=== PATIENT | male | born 1940 | race African-American/Black ===

== ENCOUNTER 2023-08-24 11:01 | Inpatient (IN) | payer OTHER, SELFPAY ==
[2023-08-24] VITALS (7 sets, daily range): BP systolic 154–172; BP diastolic 80–93; PULSE 96–116; RESP 16–19; TEMP 36.4–39.5; O2SAT 94–97; BMI 30.3
--- NOTE | ~2023-08-24 | CT_ITS ---
EXAMINATION: CT ABDOMEN AND PELVIS WITH CONTRAST CLINICAL INFORMATION: Abdominal pain. Urinary retention COMPARISON: None available. TECHNIQUE: Multidetector volumetric images were obtained from the superior aspect of the liver through the pubic symphysis following administration 85 mL of Omnipaque 350 intravenous contrast. Sagittal and coronal reformatted images were obtained on the technologist's workstation. Oral contrast: No This CT examination was performed using dose optimization techniques as appropriate, variously including the following: *Automated exposure control *Adjustment of mA and/or kV according to patient size (this includes techniques or standardized protocols for targeted exams where dose is matched to indication/reason for exam; i.e. extremities or head) *Use of iterative reconstruction technique DLP: 509 mGy-cm FINDINGS: LUNG BASES: The visualized lung bases are unremarkable. LIVER, GALLBLADDER, AND BILIARY TREE: Mild hepatic steatosis. No focal hepatic mass. No intrahepatic biliary dilatation. Gallbladder not identified and presumably absent. PANCREAS: Unremarkable. SPLEEN: Unremarkable. ADRENAL GLANDS: Unremarkable. KIDNEYS AND URETERS: 2 mm punctate stone mid right kidney nonobstructive. Kidneys otherwise normal. No hydronephrosis or perinephric collection. BLADDER: The bladder is decompressed with a somewhat thick inferior wall secondary to what appears to be an infiltrative process from the prostate. Please see below. GASTROINTESTINAL TRACT: No bowel obstruction. Appendix normal. Moderate sigmoid diverticular disease noted. No diverticulitis. Small hiatal hernia. ABDOMINAL WALL: No significant hernia is appreciated. LYMPH NODES: Normal. VASCULAR: Aorta atherosclerotic but nonaneurysmal. PELVIC VISCERA: Abnormal. The prostate is enlarged, at 73 mm transverse with a prominent left peripheral zone as well as a very prominent central zone protruding up to the base of the bladder and possibly invading the bladder wall. I would recommend correlation with PSA as well as consultation. I do not see any adjacent fluid collections are significant adenopathy however deep in the pelvis. There does appear to be slight nodularity also to the left seminal vesicle. OSSEOUS STRUCTURES: There is degenerative change and spondylitic change throughout the lumbar spine but no destructive lesion. Note is made however of very minor sclerotic foci in the right and left iliac bones. Given the finding seen in the prostate on the CT study, I would recommend a bone scan. CT/CT abdomen pelvis w IV con IMPRESSION: Enlarged abnormal appearing prostate, extending up to the base of the bladder. Further workup advised. Agnesner guidelines were followed.
--- NOTE | ~2023-08-24 | XR_ITS ---
EXAMINATION: XR CHEST CLINICAL INFORMATION: Patient states cough for 2 weeks, unable to sleep last night due to cough COMPARISON: None available. TECHNIQUE: 2 views of the chest were obtained. FINDINGS: Patient is in lordotic position, limiting evaluation. Lung volumes are low. There is no gross pneumothorax. Moderate degenerative changes in the thoracic spine. Asymmetric elevation of the left lung base. Streaky opacities at the left lung base may represent bronchiectasis, atelectasis and/or pneumonia. No pleural effusion. XR/XR chest 2V IMPRESSION: Streaky opacities at the left lung base may represent bronchiectasis, atelectasis and/or pneumonia. No pleural effusion. This study was presented today August 24, 2023 at 1:05 PM for interpretation. Stat results provided at this time as requested by referring provider.
--- NOTE | ~2023-08-24 | XR_ITS ---
EXAMINATION: XR LUMBOSACRAL SPINE WITH OBLIQUES CLINICAL INFORMATION: Back pain COMPARISON: CT abdomen pelvis 4 days ago on 08/24/2023 TECHNIQUE: AP, both oblique, and lateral views of the lumbar spine. Lateral view of the lumbosacral junction. FINDINGS: Some mild spondylitic endplate changes are present. Vertebral body heights and disc spaces are relatively well preserved. No compression fractures or bony destructive lesions. Findings were all seen to better advantage on the 08/24/2023 CT scan. The sclerotic density seen in the iliac bones are better appreciated on the CT scan. XR/XR lumbar spine 4V min IMPRESSION: Mild spondylitic endplate changes. No evidence of an acute injury.
--- NOTE | 2023-08-24 11:33 | ED_ITS ---
HPI - General Adult General Chief complaint: Fever Stated complaint: Cough, headache, insomnia Time Seen by Provider: 08/24/23 11:43 Source: patient Mode of arrival: ambulatory Limitations: no limitations History of Present Illness HPI narrative: Patient is an 83 year old assigned male at with a history of an enlarged prostate presenting to the emergency department today with cough, weakness, and intermittent abdominal pain. Patient states that over the last 2 weeks he has had a cough, weakness, and intermittent abdominal pain. Patient denies any dizziness, lightheadedness, nausea, vomiting, fever, chills, blurry vision, double vision, loss of vision, chest pain, difficulty breathing, shortness of breath, back pain, night sweats, pain with urination, increased urinary frequency, increased urinary urgency, blood in his urine or stool, syncope or a near syncopal episode, recent trauma or falls, bowel incontinence, bladder incontinence, bowel retention, bladder retention, or any other complaints at this time. Onset (ago): week(s) (2) Location: abdomen Severity: mild Severity scale (1-10): 4 Quality: aching Pain Consistency: intermittent Relieving factors: none Exacerbating factors: none Associated symptoms: cough and weakness Treatments prior to arrival: none Related Data Allergies Allergy/AdvReac Type Severity Reaction Status Date / Time No Known Allergies Allergy Verified 08/24/23 11:34 Review of Systems 2 Constitutional: Constitutional: Reports no additional constitutional complaints, Denies chills, Denies fever(s), Denies night sweats and Reports weakness Eyes: Eyes: Reports no additional eye complaints, Denies blurry vision, Denies change in vision, Denies diplopia, Denies eye discharge, Denies loss of vision and Denies eye pain ENT: Denies dizziness Cardiovascular: Cardiovascular: Reports no additional cardiovascular complaints, Denies chest pain, Denies lightheadedness, Denies Loss of Consciousness and Denies dyspnea Respiratory: Respiratory: Reports no additional respiratory complaints, Reports cough and Denies dyspnea Gastrointestinal: Gastrointestinal: Reports no additional gastrointestinal complaints, Reports abdominal pain (intermittent), Denies melena, Denies hematochezia, Denies change in bowel habits and Denies change in stool character Genitourinary: Genitourinary: Reports no additional male genitourinary complaints, Denies hematuria, Denies oliguria, Denies difficulty urinating, Denies dysuria, Denies urinary frequency, Denies urinary hesitancy, Denies urinary incontinence and Denies urinary urgency Musculoskeletal: Musculoskeletal: Reports no additional musculoskeletal complaints, Denies numbness and Denies tingling Neurologic: Denies dizziness, Denies loss of vision, Denies numbness, Denies tingling and Reports weakness Psychiatric: Psychiatric: Reports no additional psychiatric complaints Endocrine: Endocrine: Reports no additional endocrine complaints Hematologic/Lymphatic: Hematologic/Lymphatic: Reports no additional hematologic/lymphatic complaints Allergic/Immunologic: Allergic/Immunologic: Reports no additional allergic/immunologic complaints [facility] Past Medical History Attestation statement: The following information was validated with the patient. Source: old records reviewed and nursing notes reviewed Social History Social History Smoked in Last 30 Days: No Use of substances other than those prescribed or required for medical reasons: No Advance Directives: No Advance Directives Information Provided: Yes Physical Exam ED Vital Signs: Vital Signs - 24 hr 08/24/23 11:35 08/24/23 14:21 Temperature 103.1 F H 99.3 F Pulse Rate 107 H 101 H Respiratory Rate 16 16 Blood Pressure 154/82 H 167/86 H Pulse Oximetry 97 95 Oxygen Delivery Method Room Air Room Air BMI result Body Mass Index 30.3 Const General: cooperative, no acute distress, alert and awake Nutritional Appearance: well nourished Orientation/consciousness: patient oriented x3 Limitations: no limitations HENMT Head: Yes normal to inspection and Yes atraumatic Ears: hearing grossly normal bilaterally and external ears normal General nose exam: Normal external nose present, no nasal discharge noted and no epistaxis Face and sinus: Yes normal facial exam, No abrasion and No laceration Mouth: Normal oral and palatal mucosa present, no drooling and no muffled voice Eyes General: appearance normal, both eyes and all related structures Periorbital: periorbital findings normal Eyelids: Yes eyelids normal Conjunctivae: conjunctivae normal Pupils: Equal, round and reactive pupils present EOM: EOMs intact bilaterally Neck Neck: Yes normal visual inspection, Yes full ROM and Yes no lymphadenopathy Chest Chest palpation & inspection: normal inspection of the chest Resp Effort & Inspection: normal respiratory effort and able to speak in complete sentences Auscultation: clear to auscultation bilaterally Cardio Rate: tachycardic Rhythm: regular rhythm GI Inspection: Yes normal to inspection Neuro General: patient oriented x3 and moves all extremities Cranial nerves: Yes Equal, round and reactive pupils present Cognition (Neuro): normal cognition Motor exam (neuro): 5/5 motor strength present throughout Sensory Exam: Normal double simultaneous stimulation for sensation Coordination: [id number] test normal Extrem General: Yes normal to inspection, Yes full ROM and Yes capillary refill normal Psych Appearance: grossly normal Mental Status: mental status grossly normal Affect: normal affect Attitude: cooperative Thought process: Normal thought process present Thought content: Normal thought content present Insight: Good insight present (Psych) Course Course Course Narrative: RME: 83yo M w/no sig PMHx c/o generalized weakness, subj fever, dry cough, SOB, chest pain w/cough, chills x2 weeks. Also reports urinary frequency & constipation. Denies N/V/D Recently traveled on cruise, visiting area from [place] febrile 103.1, Tachycardic 107 likely from fever. Low suspicion for severe sepsis at this time as likely viral etiology EKG, Labs, UA, CXR, blood cx, lactic, SARS/FLU/RSV, Tylenol ordered Full HPI, ROS and PE to be performed by primary ED provider. Medications Administered Discontinued Medications Generic Name Dose Route Start Last Admin Trade Name Freq PRN Reason Stop Dose Admin Acetaminophen 975 mg 08/24/23 11:39 08/24/23 11:46 Acetaminophen 325 Mg Tablet PO 08/24/23 11:40 975 mg ONCE ONE Administration Ceftriaxone Sodium 2 gm/ 50 mls @ 100 mls/hr 08/24/23 11:43 08/24/23 13:20 Sodium Chloride IV 08/24/23 12:12 Infused ONCE ONE Infusion Sodium Chloride 1,000 mls @ 999 mls/hr 08/24/23 13:00 08/24/23 15:14 Ns IV 08/24/23 14:00 Infused .Q1H1M MANISH Infusion Iohexol 85 ml 08/24/23 12:56 08/24/23 12:57 Iohexol 350 Mg/Ml 100 Ml Infus..Btl IV 08/24/23 12:57 85 ml ONCE ONE Administration Medical Decision Making Medical Decision Making MDM Narrative: Patient is an 83 year old assigned male at with a history of enlarged prostate presenting to the emergency department today with cough, weakness, and intermittent abdominal pain. Patient's physical exam was as noted in the physical exam portion of this note. Patient's blood work was unremarkable. Patient's urine showed an acute infection. Patient's EKG was unremarkable. Patient's chest x-ray showed a possible evolving pneumonia. Patient's CT abdomen showed concerning areas of the pancreas, specifically where it seems to be infiltrating the bladder, recommended a bone scan . Patient's lactic acid was normal at 1.1. Patient was given IV Ceftriaxone. I spoke with the hospitalist team who agreed to admission. I explained my physical exam findings as well as all test results to the patient. I answered all questions asked by the patient. Patient verbalized agreement and understanding with this treatment plan and admission. Differential Diagnosis Differential Diagnoses: The differential diagnosis associated with the presentation includes Pneumonia UTI URI Admission/Observation Consideration of admission/observation: Escalation of care including admission/observation considered Patient admitted. Consult Healthcare Provider Management of the patient was discussed with: Hospitalist (Agreed to admission.) Lab Data [facility] Lab Attestation statement: I reviewed the patient's lab results. My interpretation of these results are in the MDM Rationale portion of this note. 08/24/23 12:19 08/24/23 12:19 Labs: Lab Results 08/24/23 08/24/23 Range/Units 11:51 12:19 WBC 7.5 (4.8-10.8) X10*3/uL RBC 3.59 L (4.60-5.80) X10*6/uL Hgb 9.5 L (14.0-18.0) g/dl Hct 30.2 L (42.0-52.0) % MCV 84.1 (80.0-98.0) fL MCH 26.5 L (27.0-33.0) pg MCHC 31.5 (31.0-36.0) g/dl RDW 19.1 H (11.0-16.0) % Plt Count 201 (160-400) X10*3/uL MPV 10.8 (9.4-12.4) fL Immature Gran % (Auto) 0.3 (0.0-0.4) % Neut % (Auto) 59.2 (45-73) % Lymph % (Auto) 19.7 L (20-40) % [place] % (Auto) 19.4 H (2-11) % Eos % (Auto) 1.1 (0-4) % Baso % (Auto) 0.3 (0-2) % Lymph # (Auto) 1.5 (1.2-4.9) X10*3/uL [place] # (Auto) 1.5 H (0.1-1.2) X10*3/uL Eos # (Auto) 0.1 (0.0-0.4) X10*3/uL Baso # (Auto) 0.0 (0.0-0.2) X10*3/uL Abs Immat Gran (auto) 0.02 (0.00-0.03) X10*3/uL Absolute Neuts (auto) 4.5 (2.0-8.3) x10*3/uL Absolute Nucleated RBC 0.020 H (0.0-0.012) X10*3/uL Nucleated RBC % (auto) 0.3 H (0.0-0.2) /100WBC Sodium 135 (135-145) mmol/L Potassium 4.3 (3.3-5.1) mmol/L Chloride 101 (96-108) mmol/L Carbon Dioxide 24 (22-29) mmol/L Anion Gap 14 (12-20) BUN 12 (9-16) mg/dL Creatinine 1.05 (0.5-1.4) mg/dL Estim Creat Clear Calc 52.6 Estimated GFR > 60 Random Glucose 121 H (60-115) mg/dL Lactic Acid 1.1 (0.5-2.0) mmol/L Calcium 9.3 (8.4-10.2) mg/dL Magnesium 2.1 (1.6-2.6) mg/dL Total Bilirubin 0.6 (0.0-1.0) mg/dL Direct Bilirubin 0.3 (0.0-0.5) mg/dL AST 23 (5-37) U/L ALT 21 (0-40) U/L Alkaline Phosphatase 64 (39-117) U/L Troponin I High Sens 7.5 (<3.5-35.0) ng/L B-Natriuretic Peptide 70 (<100) pg/mL Total Protein 8.7 H (6.5-8.0) g/dL Albumin 3.2 L (3.5-5.0) g/dL Urine Color Yellow Urine Appearance Cloudy Urine pH 6.0 (5.0-9.0) Ur Specific [place] 1.020 (1.005-1.025) Urine Protein 300 (3+) H (Neg-Trace) mg/dL Urine Glucose (UA) Negative (Negative) mg/dL Urine Ketones Negative (Negative) mg/dL Urine Blood Moderate (2+) H (Negative) Urine Nitrite Positive H (Negative) Ur Leukocyte Esterase Small (1+) H (Negative) Urine RBC >20 H (0-2) /HPF Urine WBC >50 H (0-5) /HPF Ur Squamous Epith Cells 0-2 (0-2) /HPF Urine Bacteria 1+ (None Seen) Hyaline Casts 0-2 (0-2) /LPF Influenza Type A (PCR) NEGATIVE (Negative) Influenza Type B (PCR) NEGATIVE (Negative) RSV RNA Qual (PCR) NEGATIVE (Negative) SARS-CoV-2 RNA (RT-PCR) NEGATIVE (Negative) Independent Interpretation I performed an independent interpretation of an: EKG, Plain X-Ray and CT Scan Interpretation: My interpretation is in agreement with the radiologist's impression of these imaging studies. - EXAMINATION: CT ABDOMEN AND PELVIS WITH CONTRAST CLINICAL INFORMATION: Abdominal pain. Urinary retention COMPARISON: None available. TECHNIQUE: Multidetector volumetric images were obtained from the superior aspect of the liver through the pubic symphysis following administration 85 mL of Omnipaque 350 intravenous contrast. Sagittal and coronal reformatted images were obtained on the technologist's workstation. Oral contrast: No This CT examination was performed using dose optimization techniques as appropriate, variously including the following: *Automated exposure control *Adjustment of mA and/or kV according to patient size (this includes techniques or standardized protocols for targeted exams where dose is matched to indication/reason for exam; i.e. extremities or head) *Use of iterative reconstruction technique DLP: 509 mGy-cm FINDINGS: LUNG BASES: The visualized lung bases are unremarkable. LIVER, GALLBLADDER, AND BILIARY TREE: Mild hepatic steatosis. No focal hepatic mass. No intrahepatic biliary dilatation. Gallbladder not identified and presumably absent. PANCREAS: Unremarkable. SPLEEN: Unremarkable. ADRENAL GLANDS: Unremarkable. KIDNEYS AND URETERS: 2 mm punctate stone mid right kidney nonobstructive. Kidneys otherwise normal. No hydronephrosis or perinephric collection. BLADDER: The bladder is decompressed with a somewhat thick inferior wall secondary to what appears to be an infiltrative process from the prostate. Please see below. GASTROINTESTINAL TRACT: No bowel obstruction. Appendix normal. Moderate sigmoid diverticular disease noted. No diverticulitis. Small hiatal hernia. ABDOMINAL WALL: No significant hernia is appreciated. LYMPH NODES: Normal. VASCULAR: Aorta atherosclerotic but nonaneurysmal. PELVIC VISCERA: Abnormal. The prostate is enlarged, at 73 mm transverse with a prominent left peripheral zone as well as a very prominent central zone protruding up to the base of the bladder and possibly invading the bladder wall. I would recommend correlation with PSA as well as consultation. I do not see any adjacent fluid collections are significant adenopathy however deep in the pelvis. There does appear to be slight nodularity also to the left seminal vesicle. OSSEOUS STRUCTURES: There is degenerative change and spondylitic change throughout the lumbar spine but no destructive lesion. Note is made however of very minor sclerotic foci in the right and left iliac bones. Given the finding seen in the prostate on the CT study, I would recommend a bone scan. CT/CT abdomen pelvis w IV con IMPRESSION: Enlarged abnormal appearing prostate, extending up to the base of the bladder. Further workup advised. Fleischner guidelines were followed. Dictated By: Ady Aparicio MD Signed By: Electronically signed by Ady Aparicio MD 08/24/23 8747 - EXAMINATION: XR CHEST CLINICAL INFORMATION: Patient states cough for 2 weeks, unable to sleep last night due to cough COMPARISON: None available. TECHNIQUE: 2 views of the chest were obtained. FINDINGS: Patient is in lordotic position, limiting evaluation. Lung volumes are low. There is no gross pneumothorax. Moderate degenerative changes in the thoracic spine. Asymmetric elevation of the left lung base. Streaky opacities at the left lung base may represent bronchiectasis, atelectasis and/or pneumonia. No pleural effusion. XR/XR chest 2V IMPRESSION: Streaky opacities at the left lung base may represent bronchiectasis, atelectasis and/or pneumonia. No pleural effusion. This study was presented today August 24, 2023 at 1:05 PM for interpretation. Stat results provided at this time as requested by referring provider. Dictated By: Avril Alexis MD Signed By: Electronically signed by Avril Alexis MD 08/24/23 1305 - Vent. Rate: 106 BPM Atrial Rate: 106 BPM P-R Int: 120 ms QRS Dur: 076 ms QT Int: 320 ms P-R-T Axes: 062 012 034 degrees QTc Int: 425 ms Sinus tachycardia with occasional Premature ventricular complexes Otherwise normal ECG No previous ECGs available Referred By: Justina Schulte Electronically Signed By: [id number]/ [id number] Radiology Impression Discussion of test interpretation with radiology: I have reviewed the radiologist's reading. Critical Care Time Critical Care Time Critical Care Time: Yes Total Critical Care Time: 45 Attestation: I spent 45 minutes of Critical Care Time with this patient. This does not include time spent on separately reported billable procedures. Discharge Plan Discharge Clinical Impression: Urinary tract infection, Pneumonia, Prostate mass Patient Disposition: Admitted As Inpatient
--- NOTE | 2023-08-24 11:38 | ECG_ITS ---
Test Reason : CP W/COUGH Blood Pressure : / mmHG Vent. Rate : 106 BPM Atrial Rate : 106 BPM P-R Int : 120 ms QRS Dur : 076 ms QT Int : 320 ms P-R-T Axes : 062 012 034 degrees QTc Int : 425 ms Sinus tachycardia with occasional Premature ventricular complexes RSR' or QR pattern in V1 suggests right ventricular conduction delay Abnormal ECG No previous ECGs available Referred By: Justina Schulte Electronically Signed By:STONE LOPEZ MD
[2023-08-24] MEDS: Acetaminophen 325 MG TABLET 975 MG PO (11:46)
[2023-08-24 12:01] LABS: Appearance Urine Cloudy; Color Urine Yellow; Glucose Urine UA Negative (Negative); Leukocyte Esterase Urine Small (1+) (Negative); Nitrite Urine Positive (Negative); UMIC TRIGGER UACC YES; Urine Blood Moderate (2+) (Negative); Urine Ketones Negative (Negative); Urine Protein 300 (3+) mg/dL (Neg-Trace)
[2023-08-24 12:04] LABS: Bacteria Urine 1+ (None Seen); Hyaline Casts Urine 0-2 /LPF (0-2); RBC Urine >20 /HPF (0-2); Squamous Epithelial Cell Urine 0-2 /HPF (0-2); UACC Culture Trigger YES; WBC Urine >50 /HPF (0-5)
[2023-08-24 12:27] LABS: MANUAL DIFF FLAG NO
[2023-08-24 12:28] LABS: Basophils Percent Auto 0.3 % (0-2); Eosinophils Absolute Auto 0.1 X10*3/uL (0.0-0.4); Eosinophils Percent Auto 1.1 % (0-4); Hematocrit 30.2 % (42.0-52.0); Hemoglobin 9.5 g/dl (14.0-18.0); Imm Gran Abs Auto 0.02 X10*3/uL (0.00-0.03); Imm Gran Pct Auto 0.3 % (0.0-0.4); Lymphocytes Absolute Auto 1.5 X10*3/uL (1.2-4.9); Lymphocytes Percent Auto 19.7 % (20-40); Mean Corpuscular HGB Conc 31.5 g/dl (31.0-36.0); Mean Corpuscular Hemoglobin 26.5 pg (27.0-33.0); Mean Corpuscular Volume 84.1 fL (80.0-98.0); Mean Platelet Volume 10.8 fL (9.4-12.4); Monocytes Absolute Auto 1.5 X10*3/uL (0.1-1.2); Monocytes Percent Auto 19.4 % (2-11); NRBC Pct Auto 0.3 /100WBC (0.0-0.2); Neutrophils Absolute Auto 4.5 x10*3/uL (2.0-8.3); Neutrophils Percent Auto 59.2 % (45-73); Platelet Count 201 X10*3/uL (160-400); Red Blood Count 3.59 X10*6/uL (4.60-5.80); Red Cell Distribution Width 19.1 % (11.0-16.0); White Blood Count 7.5 X10*3/uL (4.8-10.8)
[2023-08-24 12:37] LABS: Influenza A PCR NEGATIVE (Negative); Influenza B PCR NEGATIVE (Negative); Resp Syncy Virus RNA Qual PCR NEGATIVE (Negative); SARS COV2 PCR INHOUSE NEGATIVE (Negative)
[2023-08-24 12:37] LABS: Lactic Acid 1.1 mmol/L (0.5-2.0)
[2023-08-24] MEDS: cefTRIAXone sodium 2 GM in 0.9 % Sodium Chloride 50 ML IV (12:37)
[2023-08-24 12:43] LABS: Alanine Aminotransferase 21 U/L (0-40); Albumin Level 3.2 g/dL (3.5-5.0); Alkaline Phosphatase 64 U/L (39-117); Anion Gap 14 (12-20); Aspartate Amino Transferase 23 U/L (5-37); Bilirubin Direct 0.3 mg/dL (0.0-0.5); Bilirubin Total 0.6 mg/dL (0.0-1.0); Blood Urea Nitrogen 12 mg/dL (9-16); Calcium 9.3 mg/dL (8.4-10.2); Carbon Dioxide 24 mmol/L (22-29); Chloride 101 mmol/L (96-108); Creatinine Clr Calc Pharmacy 52.6; Estimated Glomerular Filt Rate > 60; Glucose Random 121 mg/dL (60-115); Magnesium 2.1 mg/dL (1.6-2.6); Potassium 4.3 mmol/L (3.3-5.1); Sodium 135 mmol/L (135-145); Total Protein 8.7 g/dL (6.5-8.0)
[2023-08-24 12:48] LABS: B Type Natriuretic Peptide 70 pg/mL (<100)
[2023-08-24 12:49] LABS: Troponin-I High Sensitivity 7.5 ng/L (<3.5-35.0)
[2023-08-24] MEDS: iohexoL 350 MG/ML 100 ML INFUS..BTL 85 ML IV (12:57)
[2023-08-24] MEDS: 0.9 % Sodium Chloride 1,000 ML 999 ML IV (13:20)
--- NOTE | 2023-08-24 15:19 | PC.NURSE ---
late entry: pt a&o x4, pleasant, calm, and cooperative. pt family at bedside. can ambulate self to go to bathroom. 20G IV established to RAC. labs drawn and sent to lab. pt medicated per dec. rr even/unlabored. call pitts within pt reach. plan of care ongoing. pt from [place].
--- NOTE | 2023-08-24 15:43 | PHA.MEDREC ---
Pharmacy Consult ? Medication Reconciliation Pharmacy has completed the medication reconciliation. Patient takes no daily medications, just otc prn medications every once in a while. Page Thomas ,PharmD
--- NOTE | 2023-08-24 16:41 | P.HPHOSP_ITS ---
History of Present Illness Date of Service: 08/24/23 Attending physician on admission: Kirk Dennis Chief Complaint: Generalized weakness, abdominal pain Pt is an 83-year-old male with a PMH significant for?enlarged prostate not on home meds who presents to the ED with?multiple complaints including shortness of breath, headache, cough, constipation, and abdominal distension. Patient is a resident of [place] currently visiting family. Family recently went on a cruise to celebrate patient's birthday on August 06. Patient states he began to feel ill while on the cruise 1.5 weeks ago. Patient experienced mostly nonproductive cough, shortness of breath, headache, difficulty breathing, and fever and chills. Patient reports also has been experiencing constipation, abdominal distension, and significant flatulence for the past 2-3 weeks. Patient reports he normally has 2-3 bowel movements every day and does not have a history of constipation. Patient presented to the ED today after experiencing a particularly rough night last night where he was constantly coughing and could not sleep and his abdominal distention was worsening. Of note, patient's only significant PMH is an enlarged prostate for which she is followed by Urology in [facility]. Sees his urologist yearly and has an appointment with him later in the month. Patient states he is currently not on any home meds for BPH. Does report occasional hematuria for at least the last year. Denies any unintended weight loss. No chest pain/pressure, palpitations. Denies nausea, vomiting, abdominal pain. In the ED patient was febrile at 103.1, tachycardic up to 107, and hypertensive up to 172/93, satting at 97% on RA. Labs were significant for H&H 9.5/30.2, otherwise largely unremarkable. Electrolytes WNL. Renal function in all hepatic lesion WNL. Lactic acid 1.1. Troponin 7.5. Patient tested negative for influenza type a and B, RSV, COVID. UA positive for UTI. CXR showed streaky opacities in the left lung base may represent bronchiectasis, atelectasis, and/or pneumonia. CT of abdomen pelvis found enlarged abnormal appearing prostate, extending up to the base of the bladder. EKG demonstrated sinus tachycardia with PVCs but no evidence of ST elevations or depressions. Pt was treated with acetaminophen, ceftriaxone, and IVF. Pt will be admitted to the hospital for treatment and further evaluation of sepsis in the setting of UTI and pneumonia. Review of Systems 2 Review of Systems: Shortness of breath, cough Constipation, abdominal distention Headache Fever and chills Denies chest pain/pressure, palpitations No nausea, vomiting, abdominal pain PMFSH Medical History (Updated 08/24/23 @ 17:53 by LIYA Haji) Enlarged prostate Social History Household Members: Children Housing: House Do you presently have visiting nurse or other home services: No Patient Tobacco Use Status: Never used Tobacco Smoked in Last 30 Days: No Use of substances other than those prescribed or required for medical reasons: No Currently Displaying Signs/Symptoms of Drug Intoxication Withdrawal: No Have you been hit, kicked, punched, or otherwise hurt by someone within the past year? If so, by whom?: No Do you feel safe in your current relationship?: No Current Relationship Is there a partner from a previous relationship who is making you feel unsafe now?: No Are you made to feel afraid or neglected: No Advance Directives: No Advance Directives Information Provided: Yes Do you have thoughts of harming others: None Do you have a plan to hurt others: No Plan Recently lost weight without trying: No How much weight loss: Not applicable Eating poorly because of decreased appetite: No Nutrition screen score: 0 Nutrition Risks: No Nutritional Risk Poor oral hygiene: No Meds Allergies Allergy/AdvReac Type Severity Reaction Status Date / Time No Known Allergies Allergy Verified 08/24/23 11:34 Home Medications Medication Instructions Recorded Confirmed Last Taken Type No Known Home Meds 08/24/23 08/24/23 Unknown History Physical Exam 2 Vital Signs and Narrative: Vital Signs: Last Vital Signs Temp 99.6 F 08/24/23 16:00 Pulse 96 08/24/23 16:00 Resp 16 08/24/23 16:00 BP 172/93 H 08/24/23 16:00 Pulse Ox 96 08/24/23 16:00 O2 Del Method Room Air 08/24/23 16:00 BMI result Body Mass Index 30.3 General: AOx3, no acute distress Resp: CTA bilaterally CVS: S1, S2, RRR GI: +BS, NT, moderate distention Skin: No rash Neuro: Cranial nerves II-XII grossly intact bilaterally. Motor grossly intact bilaterally Extremities: No edema Psych: Appropriate affect Results Labs 08/25/23 05:16 08/24/23 12:19 Labs: Laboratory Results - last 24 hr 08/24/23 08/24/23 11:51 12:19 MCV 84.1 MCH 26.5 L MCHC 31.5 RDW 19.1 H Plt Count 201 MPV 10.8 Immature Gran % (Auto) 0.3 Neut % (Auto) 59.2 Lymph % (Auto) 19.7 L [place] % (Auto) 19.4 H Eos % (Auto) 1.1 Baso % (Auto) 0.3 Lymph # (Auto) 1.5 [place] # (Auto) 1.5 H Eos # (Auto) 0.1 Baso # (Auto) 0.0 Abs Immat Gran (auto) 0.02 Absolute Neuts (auto) 4.5 Absolute Nucleated RBC 0.020 H Nucleated RBC % (auto) 0.3 H Anion Gap 14 Estim Creat Clear Calc 52.6 Estimated GFR > 60 Random Glucose 121 H Lactic Acid 1.1 Calcium 9.3 Magnesium 2.1 Total Bilirubin 0.6 Direct Bilirubin 0.3 AST 23 ALT 21 Alkaline Phosphatase 64 B-Natriuretic Peptide 70 Total Protein 8.7 H Albumin 3.2 L Urine Color Yellow Urine Appearance Cloudy Urine pH 6.0 Ur Specific [place] 1.020 Urine Protein 300 (3+) H Urine Glucose (UA) Negative Urine Ketones Negative Urine Blood Moderate (2+) H Urine Nitrite Positive H Ur Leukocyte Esterase Small (1+) H Urine RBC >20 H Urine WBC >50 H Ur Squamous Epith Cells 0-2 Urine Bacteria 1+ Hyaline Casts 0-2 Influenza Type A (PCR) NEGATIVE Influenza Type B (PCR) NEGATIVE RSV RNA Qual (PCR) NEGATIVE SARS-CoV-2 RNA (RT-PCR) NEGATIVE Imaging Radiologist's Impressions: Impressions Chest X-Ray 08/24/23 12:32 IMPRESSION: Streaky opacities at the left lung base may represent bronchiectasis, atelectasis and/or pneumonia. No pleural effusion. This study was presented today August 24, 2023 at 1:05 PM for interpretation. Stat results provided at this time as requested by referring provider. Abdomen/Pelvis CT 08/24/23 12:59 IMPRESSION: Enlarged abnormal appearing prostate, extending up to the base of the bladder. Further workup advised. Fleischner guidelines were followed. Assessment and Plan (1) Pneumonia: Status: Acute (2) Urinary tract infection: Status: Acute Plan Pt is an 83-year-old male with a PMH significant for?enlarged prostate not on home meds who presents to the ED with?multiple complaints including shortness of breath, headache, cough, constipation, and abdominal distension. Patient is a resident of [place] currently visiting family. Pt will be admitted to the hospital for treatment and further evaluation of sepsis in the setting of UTI and pneumonia. Question of pneumonia Patient with cough, SOB, fatigue x1.5 weeks CXR with evidence of possible pneumonia Patient meets sepsis criteria: Likely UTI and pneumonia, fever of 103.1, tachycardia; lactic acid WNL at 1.1 Patient given IVF and ceftriaxone in ED Will treat with ceftriaxone and azithromycin, started 08/24/2023 Loratadine, guaifenesin for cough Tylenol for fever Will get respiratory panel UTI UA positive for UTI Will treat as above with ceftriaxone, started 08/24/2023 Enlarged prostate Patient with a history of enlarged prostate for the past 6-7 years, sees urologist yearly in [place], not on home meds CT of abdomen and pelvis showed enlarged abnormal appearing prostate, extending up to the base of the bladder Patient reports gross hematuria on and off for at least the past year Concerning for prostate cancer Will get PSA levels Will start on Flomax Urology consult Constipation Patient reports having constipation for the past 2-3 weeks States normally has 2-3 bowel movements daily Will give Colace, MiraLax Full Code Attending:?Dr. Dennis DVT Prophylaxis: Lovenox Pt will require a hospitalization of at least two nights for treatment of?sepsis in the setting UTI and possible pneumonia with IV antibiotics and close monitoring. Quality Stroke Does the patient have a stroke diagnosis?: No VTE Prior VTE?: No VTE Risk Level:: Medical - moderate - high VTE Device Contraindication: Treatment Not Indicated VTE Drug Contraindication: N/A - Med Ordered
[2023-08-24 17:28] LABS: Estimated Average Glucose 117 mg/dL; Hemoglobin A1c % 5.7 % (<6.0)
[2023-08-24] MEDS: guaiFENesin DM 200/20/10 ML 10 ML SYRUP PO ×2 (17:52→22:11)
[2023-08-24] MEDS: Docusate Sodium 100 MG CAPSULE PO (17:52)
[2023-08-24] MEDS: Loratadine 10 MG TABLET PO (17:52)
[2023-08-24] MEDS: Azithromycin 500 MG TABLET PO (17:52)
[2023-08-24] MEDS: Tamsulosin HCL 0.4 MG CAPSULE PO (17:52)
[2023-08-24] MEDS: polyethylene glycoL 3350 17 GM POWD.PACK PO (17:54)
[2023-08-24] MEDS: Enoxaparin Sodium 40 MG/0.4 ML SYRINGE SUBCUT (17:56)
--- NOTE | 2023-08-24 18:17 | PC.NURSE ---
pt medicated per mar with stool softeners, antibiotics, claritin, and cough syrup. pt sitting up eating dinner. daughter at bedside. call pitts within reach . plan of care ongoing
[2023-08-24 18:33] LABS: Prostate Specific Antigen 5.23 ng/mL (<0.05-4.0)
--- NOTE | 2023-08-24 19:04 | PC.NURSE ---
PT TRANSFERED FROM MAIN ER ON STRETCHER. DAUGHTER IS AT BEDSIDE. PT/DAUGHTER AWARE OF PLAN OF CARE.
--- NOTE | 2023-08-24 19:14 | MHC.EDTECH ---
Patient resting comfortably in bed. Patient's daughter at bedside requested a phone chemical pumper. Patient's phone was labeled and brought to Main ED to the charging station. Patient and daughter both aware, will retrieve phone later when charged. Call pitts within reach, bed alarm on.
[2023-08-24] MEDS: Melatonin 3 MG TABLET 6 MG PO (21:03)
[2023-08-24] MEDS: Acetaminophen 325 MG TABLET 650 MG PO (21:03)
[2023-08-24] MEDS: Acetaminophen 1,000 MG/100 ML PIGGYBACK 400 MG IV (22:33)
[2023-08-24] MEDS: 0.9 % Sodium Chloride Flush 3 ML SYRINGE IVFLUSH (23:35)
[2023-08-25] VITALS: BP 163/80; PULSE 90; RESP 16; TEMP 36.9; O2SAT 96
[2023-08-25 02:59] VITALS: BP 158/74; PULSE 88; RESP 16; TEMP 37.1; O2SAT 96
[2023-08-25 05:56] LABS: Hematocrit 29.3 % (42.0-52.0); Mean Corpuscular HGB Conc 30.7 g/dl (31.0-36.0); Mean Corpuscular Hemoglobin 26.3 pg (27.0-33.0); Mean Corpuscular Volume 85.7 fL (80.0-98.0); Mean Platelet Volume 11.1 fL (9.4-12.4); Platelet Count 190 X10*3/uL (160-400); Red Blood Count 3.42 X10*6/uL (4.60-5.80); Red Cell Distribution Width 19.5 % (11.0-16.0); White Blood Count 6.6 X10*3/uL (4.8-10.8)
[2023-08-25 08:00] VITALS: BP 170/87; PULSE 94; RESP 16; TEMP 36.9; O2SAT 96
[2023-08-25] MEDS: Tamsulosin HCL 0.4 MG CAPSULE PO (08:30)
[2023-08-25] MEDS: 0.9 % Sodium Chloride Flush 3 ML SYRINGE IVFLUSH ×2 (08:30→21:52)
[2023-08-25] MEDS: Loratadine 10 MG TABLET PO (08:30)
[2023-08-25] MEDS: guaiFENesin DM 200/20/10 ML 10 ML SYRUP PO (08:30)
[2023-08-25] MEDS: Acetaminophen 325 MG TABLET 650 MG PO ×2 (08:39→17:37)
[2023-08-25 09:26] LABS: Adenovirus PCR Not Detected (Not Detect.); Bordetella parapertussis PCR Not Detected (Not Detect.); Bordetella pertussis PCR Not Detected (Not Detect.); Chlamydia pneumoniae PCR Not Detected (Not Detect.); Coronavirus 229E PCR Not Detected (Not Detect.); Coronavirus HKU1 PCR Not Detected (Not Detect.); Coronavirus NL63 PCR Not Detected (Not Detect.); Coronavirus OC43 PCR Not Detected (Not Detect.); Human metapneumovirus PCR Not Detected (Not Detect.); Influenza A PCR Not Detected (Not Detect.); Influenza B PCR Not Detected (Not Detect.); Mycoplasma pneumoniae PCR Not Detected (Not Detect.); Parainfluenza 1 PCR Not Detected (Not Detect.); Parainfluenza 2 PCR Not Detected (Not Detect.); Parainfluenza 3 PCR Not Detected (Not Detect.); Parainfluenza 4 PCR Not Detected (Not Detect.); RSV PCR Not Detected (Not Detect.); Rhino/Enterovirus PCR Not Detected (Not Detect.)
[2023-08-25] MEDS: Dextrose 5 % and 0.9 % NaCl 1,000 ML 100 ML IVCONT (09:46)
[2023-08-25] MEDS: polyethylene glycoL 3350 17 GM POWD.PACK PO (09:50)
[2023-08-25] MEDS: guaiFEN/Codeine SF 200/20/10ML 10 ML LIQUID PO ×3 (09:50→23:42)
[2023-08-25 10:13] LABS: SARS-CoV-2 PCR Not Detected (Not Detect.)
[2023-08-25 11:32] VITALS: BP 170/80; PULSE 93; RESP 16; TEMP 37.1; O2SAT 94
[2023-08-25] MEDS: cefTRIAXone sodium 2 GM in 0.9 % Sodium Chloride 50 ML IV (13:01)
--- NOTE | 2023-08-25 13:54 | P.PNIM_ITS ---
Subjective Subjective Date of Service: 08/25/23 Interval History: bph, uti Review of Systems still has cough urinary frequency. no fevers Physical Exam 2 Vital Signs: Vital Signs: Last Vital Signs Temp 98.7 F 08/25/23 11:32 Pulse 93 08/25/23 11:32 Resp 16 08/25/23 11:32 BP 170/80 H 08/25/23 11:32 Pulse Ox 94 08/25/23 11:32 O2 Del Method Room Air 08/25/23 11:32 BMI result Body Mass Index 30.3 Appearance: Alert.? Oriented X3.? cvs: rrr, [id number] , no murmur res: air entry fair ,slightly diminshed at bases. abd: no rebound or guarding , abd slightly globular , bs present. ext pulses present , no cyanosis . neuro: axo3 , nonfocal. Objective Data Active Medications Acetaminophen (Acetaminophen 325 Mg Tablet) 650 mg PO Q6H PRN PRN Reason: Pain, Mild (Pain Scale 1-3) Last Admin: 08/25/23 08:39 Dose: 650 mg Documented By: SUNDAY Azithromycin (Azithromycin 500 Mg Tablet) 500 mg PO Q24H [facility] Last Admin: 08/24/23 17:52 Dose: 500 mg Documented By: JOSE Docusate Sodium (Docusate Sodium 100 Mg Capsule) 100 mg PO BID PRN PRN Reason: Constipation Enoxaparin Sodium (Enoxaparin Sodium 40 Mg/0.4 Ml Syringe) 40 mg SUBCUT Q24H [facility] Last Admin: 08/24/23 17:56 Dose: 40 mg Documented By: JOSE Guaifenesin/Dextromethorphan (Guaifenesin Dm 200/20/10 Ml 10 Ml Syrup) 10 ml PO Q4H PRN PRN Reason: Cough Last Admin: 08/25/23 08:30 Dose: 10 ml Documented By: SUNDAY Dextrose/Sodium Chloride (D5ns) 1,000 mls @ 100 mls/hr IVCONT .Q10H [facility] Last Admin: 08/25/23 09:46 Dose: 100 mls/hr Documented By: SUNDAY Ceftriaxone Sodium 2 gm/ (Sodium Chloride) 50 mls @ 100 mls/hr IV Q24H [facility] Last Infusion: 08/25/23 13:45 Dose: Infused Documented By: SUNDAY Loratadine (Loratadine 10 Mg Tablet) 10 mg PO DAILY [facility] Last Admin: 08/25/23 08:30 Dose: 10 mg Documented By: SUNDAY Melatonin (Melatonin 3 Mg Tablet) 6 mg PO BEDTIME PRN PRN Reason: Insomnia Last Admin: 08/24/23 21:03 Dose: 6 mg Documented By: JONO Ondansetron HCl (Ondansetron Hcl 4 Mg/2 Ml Vial) 4 mg IVPUSH Q8H PRN PRN Reason: Nausea and Vomiting Polyethylene Glycol (Polyethylene Glycol 3350 17 Gm Powd.Pack) 17 gm PO DAILY PRN PRN Reason: Constipation Sodium Chloride (0.9 % Sodium Chloride Flush 3 Ml Syringe) 3 ml IVFLUSH QSHIFT [facility] Last Admin: 08/25/23 08:30 Dose: 3 ml Documented By: SUNDAY Tamsulosin HCl (Tamsulosin Hcl 0.4 Mg Capsule) 0.4 mg PO DAILY [facility] Last Admin: 08/25/23 08:30 Dose: 0.4 mg Documented By: SUNDAY Labs 08/25/23 05:16 08/24/23 12:19 Labs: Laboratory Results - last 24 hr 08/24/23 08/24/23 08/24/23 11:39 12:19 21:10 MCV MCH MCHC RDW Plt Count MPV Absolute Nucleated RBC Nucleated RBC % (auto) Estimat Average Glucose 117 Hemoglobin A1c % 5.7 Prostate Specific Ag 5.23 H Respiratory Panel Wu See Note Adenovirus (Rapid PCR) Not Detected B.pert (TEM-PCR) Not Detected B.parapertussis DNA PCR Not Detected C. pneumoniae DNA (PCR) Not Detected Coronavirus OC43 (PCR) Not Detected Coronavirus HKU1 (PCR) Not Detected Coronavirus 229E (PCR) Not Detected Coronavirus NL63 (PCR) Not Detected Human Metapneumovir PCR Not Detected Influenza A (RT-PCR) Not Detected Influenza B (RT-PCR) Not Detected M. pneumoniae (PCR) Not Detected Parainfluenza 1 (PCR) Not Detected Parainfluenza 2 (PCR) Not Detected Parainfluenza 3 (PCR) Not Detected Parainfluenza 4 (PCR) Not Detected RSV (PCR) Not Detected Entero/Rhino (PCR) Not Detected SARS-CoV-2 RNA (RT-PCR) Not Detected 08/25/23 05:16 MCV 85.7 MCH 26.3 L MCHC 30.7 L RDW 19.5 H Plt Count 190 MPV 11.1 Absolute Nucleated RBC 0.000 Nucleated RBC % (auto) 0.0 Estimat Average Glucose Hemoglobin A1c % Prostate Specific Ag Respiratory Panel Wu Adenovirus (Rapid PCR) B.pert (TEM-PCR) B.parapertussis DNA PCR C. pneumoniae DNA (PCR) Coronavirus OC43 (PCR) Coronavirus HKU1 (PCR) Coronavirus 229E (PCR) Coronavirus NL63 (PCR) Human Metapneumovir PCR Influenza A (RT-PCR) Influenza B (RT-PCR) M. pneumoniae (PCR) Parainfluenza 1 (PCR) Parainfluenza 2 (PCR) Parainfluenza 3 (PCR) Parainfluenza 4 (PCR) RSV (PCR) Entero/Rhino (PCR) SARS-CoV-2 RNA (RT-PCR) Microbiology Microbiology Results: Microbiology 08/24/23 Unknown Urine Culture - Preliminary Urine clean catch - Urine arenas top Culture in progress. Assessment and Plan (1) Enlarged prostate: Status: Acute (2) Prostate mass: Status: Acute (3) Pneumonia: Status: Acute (4) Urinary tract infection: Status: Acute Plan 83-year-old male with a PMH significant for?enlarged prostate not on home meds who presents to the ED with?multiple complaints including shortness of breath, headache, cough, constipation, and abdominal distension. Patient is a resident of [place] currently visiting family. Pt will be admitted to the hospital for treatment and further evaluation of sepsis in the setting of UTI and pneumonia. Question of pneumonia res panel neg Patient with cough, SOB, fatigue x1.5 weeks CXR with evidence of possible pneumonia Patient meets sepsis criteria: Likely UTI and pneumonia, fever of 103.1, tachycardia; lactic acid WNL at 1.1 continue IVF and ceftriaxone and azithromycin, started 08/24/2023,Loratadine, guaifenesin for cough,Tylenol for fever UTI:UA positive for UTI continue with ceftriaxone, started 08/24/2023 Enlarged prostate Patient with a history of enlarged prostate for the past 6-7 years, sees urologist yearly in [place], not on home meds CT of abdomen and pelvis showed enlarged abnormal appearing prostate, extending up to the base of the bladder Patient reports gross hematuria on and off for at least the past year mild elevated PSA levels started on Flomax, Urology consult Constipation Patient reports having constipation for the past 2-3 weeks States normally has 2-3 bowel movements daily Will give Colace, MiraLax,add bisacodyl Full Code DVT Prophylaxis: Lovenox ongoing hospitalization need: treatment of?sepsis in the setting UTI and possible pneumonia with IV antibiotics and close monitoring. urology eval for - need further workup . Quality Stroke Does the patient have a stroke diagnosis?: No VTE Prior VTE?: No VTE Risk Level:: Medical - moderate - high VTE Device Contraindication: Treatment Not Indicated VTE Drug Contraindication: N/A - Med Ordered
--- NOTE | 2023-08-25 14:37 | MHC.CM.PN ---
Patient living with dtr. Lives in [place]. He states that he is independent with all functional mobility. Patient does not have insurance. A financial consult referral has been sent. A [facility] MD brochure has been given to the patient., as well as the [facility] cares and the family resource guide. A HCP has been documented and placed on the chart. DP home with dtr. DP Home with dtr assist and transport.
--- NOTE | 2023-08-25 15:46 | PM.UROCN ---
History of Present Illness Consult details Consult date: 08/25/23 Narrative: CC: Large prostate 83-year-old male Known large prostate and seen in [place] by urologist for an prior a number of years Presents with infectious sequelae CT scan shows enlarged prostate with question of sclerotic focus in bone PSA 5.23 so suspicion of prostate cancer low If has difficulty voiding would suggest starting prostate medications such as tamsulosin and finasteride Able to void with emptying No documentation regarding postvoid residual No acute urologic issue With follows outpatient Review of Systems Constitutional: Constitutional: Denies chills and Denies fever(s) Cardiovascular: Cardiovascular: Reports no additional cardiovascular complaints and Denies syncope Respiratory: Respiratory: Denies cough Gastrointestinal: Gastrointestinal: Denies abdominal pain and Denies heartburn Genitourinary: Genitourinary: Reports as per HPI and Denies change in libido Neurologic: Denies syncope Psychiatric: Psychiatric: Denies change in libido Endocrine: Endocrine: Denies change in libido [facility] Past Medical History Medical History (Updated 08/24/23 @ 17:53 by LIYA Haji) Enlarged prostate Social History Social History Household Members: Children Housing: House Do you presently have visiting nurse or other home services: No Patient Tobacco Use Status: Never used Tobacco Smoked in Last 30 Days: No Use of substances other than those prescribed or required for medical reasons: No Currently Displaying Signs/Symptoms of Drug Intoxication Withdrawal: No Have you been hit, kicked, punched, or otherwise hurt by someone within the past year? If so, by whom?: No Do you feel safe in your current relationship?: No Current Relationship Is there a partner from a previous relationship who is making you feel unsafe now?: No Are you made to feel afraid or neglected: No Advance Directives: No Advance Directives Information Provided: Yes Do you have thoughts of harming others: None Do you have a plan to hurt others: No Plan Recently lost weight without trying: No How much weight loss: Not applicable Eating poorly because of decreased appetite: No Nutrition screen score: 0 Nutrition Risks: No Nutritional Risk Poor oral hygiene: No service: No Meds Allergies Allergy/AdvReac Type Severity Reaction Status Date / Time No Known Allergies Allergy Verified 08/24/23 11:34 Active Medications: Current Medications Acetaminophen (Acetaminophen 325 Mg Tablet) 650 mg PO Q6H PRN PRN Reason: Pain, Mild (Pain Scale 1-3) Last Admin: 08/25/23 08:39 Dose: 650 mg Azithromycin (Azithromycin 500 Mg Tablet) 500 mg PO Q24H [facility] Last Admin: 08/24/23 17:52 Dose: 500 mg Bisacodyl (Bisacodyl 10 Mg Supp.Rect) 10 mg [place] BEDTIME MANISH Docusate Sodium (Docusate Sodium 100 Mg Capsule) 100 mg PO BID PRN PRN Reason: Constipation Enoxaparin Sodium (Enoxaparin Sodium 40 Mg/0.4 Ml Syringe) 40 mg SUBCUT Q24H [facility] Last Admin: 08/24/23 17:56 Dose: 40 mg Guaifenesin/Codeine Phosphate (Guaifen/Codeine Sf 200/20/10ml 10 Ml Liquid) 10 ml PO Q6H PRN PRN Reason: Cough Dextrose/Sodium Chloride (D5ns) 1,000 mls @ 100 mls/hr IVCONT .Q10H [facility] Last Admin: 08/25/23 09:46 Dose: 100 mls/hr Ceftriaxone Sodium 2 gm/ (Sodium Chloride) 50 mls @ 100 mls/hr IV Q24H [facility] Last Infusion: 08/25/23 13:45 Dose: Infused Loratadine (Loratadine 10 Mg Tablet) 10 mg PO DAILY [facility] Last Admin: 08/25/23 08:30 Dose: 10 mg Melatonin (Melatonin 3 Mg Tablet) 6 mg PO BEDTIME PRN PRN Reason: Insomnia Last Admin: 08/24/23 21:03 Dose: 6 mg Ondansetron HCl (Ondansetron Hcl 4 Mg/2 Ml Vial) 4 mg IVPUSH Q8H PRN PRN Reason: Nausea and Vomiting Polyethylene Glycol (Polyethylene Glycol 3350 17 Gm Powd.Pack) 17 gm PO DAILY PRN PRN Reason: Constipation Sodium Chloride (0.9 % Sodium Chloride Flush 3 Ml Syringe) 3 ml IVFLUSH QSHIFT [facility] Last Admin: 08/25/23 14:36 Dose: Not Given Tamsulosin HCl (Tamsulosin Hcl 0.4 Mg Capsule) 0.4 mg PO DAILY [facility] Last Admin: 08/25/23 08:30 Dose: 0.4 mg Home Medications Medication Instructions Recorded Confirmed Last Taken Type No Known Home Meds 08/24/23 08/24/23 Unknown History Physical Exam Vital Signs: Vital Signs: Last Vital Signs Temp 98.7 F 08/25/23 11:32 Pulse 93 08/25/23 11:32 Resp 16 08/25/23 11:32 BP 170/80 H 08/25/23 11:32 Pulse Ox 94 08/25/23 11:32 O2 Del Method Room Air 08/25/23 11:32 BMI result Body Mass Index 30.3 Const: General: cooperative, healthy appearing, comfortable and no acute distress Orientation/consciousness: patient oriented x3 HEENT: Face and sinus: Yes normal facial exam Mouth: moist mucous membranes Neck: Neck: Yes normal visual inspection, Yes full ROM and Yes trachea midline Chest: Chest palpation & inspection: normal inspection of the chest Resp: Effort & Inspection: normal respiratory effort, able to speak in complete sentences and no respiratory distress GI: Inspection: Yes normal to inspection Back/Spine/Pelvis: Cervical Spine: normal cervical lordosis Thoracic/Lumbar Spine: thoracic and lumbar spine normal to inspection Skin: General skin exam: no rashes or lesions noted Neuro: General: patient oriented x3, gait normal, tone normal and moves all extremities Extrem: General: Yes normal to inspection and Yes capillary refill normal Results Labs 08/25/23 05:16 08/24/23 12:19 Labs: Abnormal lab results 08/24/23 08/25/23 Range/Units 11:39 05:16 RBC 3.42 L (4.60-5.80) X10*6/uL Hgb 9.0 L (14.0-18.0) g/dl Hct 29.3 L (42.0-52.0) % MCH 26.3 L (27.0-33.0) pg MCHC 30.7 L (31.0-36.0) g/dl RDW 19.5 H (11.0-16.0) % Prostate Specific Ag 5.23 H (<0.05-4.0) ng/mL Short CBC 08/25/23 Range/Units 05:16 WBC 6.6 (4.8-10.8) X10*3/uL Hgb 9.0 L (14.0-18.0) g/dl Hct 29.3 L (42.0-52.0) % Plt Count 190 (160-400) X10*3/uL Urine 11/15/23 Range/Units 11:51 Urine Color Yellow Urine Appearance Cloudy Urine pH 6.0 (5.0-9.0) Ur Specific [place] 1.020 (1.005-1.025) Urine Protein 300 (3+) H (Neg-Trace) mg/dL Urine Glucose (UA) Negative (Negative) mg/dL All other labs normal. Assessment and Plan (1) Enlarged prostate: Status: Acute (2) Urinary tract infection: Status: Acute Plan Finasteride plus tamsulosin Procedures Date of Service Date of Service: 08/25/23
[2023-08-25 16:00] VITALS: BP 150/64; PULSE 101; RESP 18; TEMP 37; O2SAT 94
[2023-08-25] MEDS: Enoxaparin Sodium 40 MG/0.4 ML SYRINGE SUBCUT (17:38)
[2023-08-25] MEDS: Azithromycin 500 MG TABLET PO (17:38)
[2023-08-25 19:34] VITALS: BP 148/58; PULSE 106; RESP 18; TEMP 36.9; O2SAT 95
[2023-08-25] MEDS: bisacodyL 10 MG SUPP.RECT PR (21:51)
[2023-08-25] MEDS: Melatonin 3 MG TABLET 6 MG PO (21:55)
[2023-08-26] VITALS (7 sets, daily range): BP systolic 140–167; BP diastolic 68–90; PULSE 91–98; RESP 16–18; TEMP 36.3–37.6; O2SAT 93–97
[2023-08-26] MEDS: guaiFEN/Codeine SF 200/20/10ML 10 ML LIQUID PO (09:16)
[2023-08-26] MEDS: 0.9 % Sodium Chloride Flush 3 ML SYRINGE IVFLUSH ×2 (09:16→14:59)
[2023-08-26] MEDS: Tamsulosin HCL 0.4 MG CAPSULE PO (09:17)
[2023-08-26] MEDS: Acetaminophen 325 MG TABLET 650 MG PO (09:17)
[2023-08-26] MEDS: Loratadine 10 MG TABLET PO (09:17)
[2023-08-26] MEDS: amLODIPine Besylate 2.5 MG TABLET PO (09:46)
[2023-08-26] MEDS: Benzonatate 100 MG CAPSULE PO ×3 (10:31→20:44)
[2023-08-26] MEDS: Fluticasone Propionate Nasal 16 GM SPRAY 1 SPRAY NOSTRIL-B (10:32)
[2023-08-26] MEDS: cefTRIAXone sodium 2 GM in 0.9 % Sodium Chloride 50 ML IV (12:42)
--- NOTE | 2023-08-26 14:50 | P.PNIM_ITS ---
Subjective Subjective Date of Service: 08/28/23 Interval History: enlarged prostate , uti, elevated bp Review of Systems patient has still urinary frequency has aggressive cough, feel congested. no fevers Physical Exam 2 Vital Signs: Vital Signs: Last Vital Signs Temp 98.0 F 08/26/23 11:46 Pulse 91 08/26/23 11:46 Resp 17 08/26/23 11:46 BP 167/88 H 08/26/23 11:46 Pulse Ox 96 08/26/23 11:46 O2 Del Method Room Air 08/26/23 11:46 BMI result Body Mass Index 30.3 Appearance: Alert.? Oriented X3.? cvs: rrr, [id number] , no murmur res: air entry fair ,slightly diminshed at bases. abd: no rebound or guarding , abd slightly globular , bs present. ext pulses present , no cyanosis . neuro: axo3 , nonfocal. Objective Data Active Medications Acetaminophen (Acetaminophen 325 Mg Tablet) 650 mg PO Q6H PRN PRN Reason: Pain, Mild (Pain Scale 1-3) Last Admin: 08/26/23 09:17 Dose: 650 mg Documented By: SUNDAY Amlodipine Besylate (Amlodipine Besylate 2.5 Mg Tablet) 2.5 mg PO DAILY [facility]; Protocol Last Admin: 08/26/23 09:46 Dose: 2.5 mg Documented By: SUNDAY Azithromycin (Azithromycin 500 Mg Tablet) 500 mg PO Q24H [facility] Last Admin: 08/25/23 17:38 Dose: 500 mg Documented By: SUNDAY Benzonatate (Benzonatate 100 Mg Capsule) 100 mg PO TID [facility] Last Admin: 08/26/23 10:31 Dose: 100 mg Documented By: SUNDAY Bisacodyl (Bisacodyl 10 Mg Supp.Rect) 10 mg [place] BEDTIME MANISH Last Admin: 08/25/23 21:51 Dose: 10 mg Documented By: DYLAN Docusate Sodium (Docusate Sodium 100 Mg Capsule) 100 mg PO BID PRN PRN Reason: Constipation Enoxaparin Sodium (Enoxaparin Sodium 40 Mg/0.4 Ml Syringe) 40 mg SUBCUT Q24H [facility] Last Admin: 08/25/23 17:38 Dose: 40 mg Documented By: SUNDAY Fluticasone Propionate (Fluticasone Propionate Nasal 16 Gm [place]) 1 spray NOSTRIL-B DAILY [facility] Last Admin: 08/26/23 10:32 Dose: 1 spray Documented By: SUNDAY Guaifenesin/Codeine Phosphate (Guaifen/Codeine Sf 200/20/10ml 10 Ml Liquid) 10 ml PO Q6H PRN PRN Reason: Cough Last Admin: 08/26/23 09:16 Dose: 10 ml Documented By: SUNDAY Ceftriaxone Sodium 2 gm/ (Sodium Chloride) 50 mls @ 100 mls/hr IV Q24H [facility] Last Infusion: 08/26/23 13:22 Dose: Infused Documented By: SUNDAY Loratadine (Loratadine 10 Mg Tablet) 10 mg PO DAILY [facility] Last Admin: 08/26/23 09:17 Dose: 10 mg Documented By: SUNDAY Melatonin (Melatonin 3 Mg Tablet) 6 mg PO BEDTIME PRN PRN Reason: Insomnia Last Admin: 08/25/23 21:55 Dose: 6 mg Documented By: DYLAN Ondansetron HCl (Ondansetron Hcl 4 Mg/2 Ml Vial) 4 mg IVPUSH Q8H PRN PRN Reason: Nausea and Vomiting Polyethylene Glycol (Polyethylene Glycol 3350 17 Gm Powd.Pack) 17 gm PO DAILY PRN PRN Reason: Constipation Sodium Chloride (0.9 % Sodium Chloride Flush 3 Ml Syringe) 3 ml IVFLUSH QSHIFT [facility] Last Admin: 08/26/23 09:16 Dose: 3 ml Documented By: SUNDAY Tamsulosin HCl (Tamsulosin Hcl 0.4 Mg Capsule) 0.4 mg PO DAILY [facility] Last Admin: 08/26/23 09:17 Dose: 0.4 mg Documented By: SUNDAY Labs 08/25/23 05:16 08/24/23 12:19 Microbiology Microbiology Results: Microbiology 08/24/23 12:19 Blood Culture - Preliminary Blood - Venous No growth after 48 hours. 08/24/23 11:51 Blood Culture - Preliminary Blood - Venous No growth after 48 hours. 08/24/23 Unknown Urine Culture - Final Urine clean catch - Urine arenas top Assessment and Plan (1) Enlarged prostate: Status: Acute (2) Pneumonia: Status: Acute (3) Urinary tract infection: Status: Acute Assessment and Plan: 83-year-old male with a PMH significant for?enlarged prostate not on home meds who presents to the ED with?multiple complaints including shortness of breath, headache, cough, constipation, and abdominal distension. Patient is a resident of [place] currently visiting family. Pt will be admitted to the hospital for treatment and further evaluation of sepsis in the setting of UTI and pneumonia. possible pneumonia res panel neg Patient with cough, SOB, fatigue x1.5 weeks CXR with evidence of possible pneumonia Patient meets sepsis criteria: Likely UTI and pneumonia, fever of 103.1, tachycardia; lactic acid WNL at 1.1 continue IVF and ceftriaxone and azithromycin, started 08/24/2023,Loratadine, guaifenesin for cough,Tylenol for fever UTI:UA positive for UTI continue with ceftriaxone, started 08/24/2023 Enlarged prostate Patient with a history of enlarged prostate for the past 6-7 years, sees urologist yearly in [place], not on home meds CT of abdomen and pelvis showed enlarged abnormal appearing prostate, extending up to the base of the bladder Patient reports gross hematuria on and off for at least the past year started on Flomax. Urology consult-added finestride .mild elevated PSA levels, ct abd reivewed by urology suspicion for prostate ca is low. Constipation Patient reports having constipation for the past 2-3 weeks States normally has 2-3 bowel movements daily Colace, MiraLax,add bisacodyl passing bms Elevated Bp:Does not take any po meds added small dose amlodipine Full Code DVT Prophylaxis: Lovenox ongoing hospitlisation need-uti/bph,pneumonia -need iv antibiotics ,blood cultures pending ,also waiting for urology follow up. Quality Stroke Does the patient have a stroke diagnosis?: No VTE Prior VTE?: No VTE Risk Level:: Medical - moderate - high VTE Device Contraindication: Treatment Not Indicated VTE Drug Contraindication: N/A - Med Ordered
--- NOTE | 2023-08-26 16:03 | MHC.CM.PN ---
EMR REVIEWED AND PER MD ROUNDS, PT NOT MEDICALLY CLEARED FOR DC, URINARY FREQUENCY, CONGESTION. CM WILL CONTINUE TO FOLLOW FOR ANY CHANGE IN DC NEEDS/PLAN
[2023-08-26] MEDS: Enoxaparin Sodium 40 MG/0.4 ML SYRINGE SUBCUT (18:07)
[2023-08-26] MEDS: Azithromycin 500 MG TABLET PO (18:08)
[2023-08-26] MEDS: bisacodyL 10 MG SUPP.RECT PR (20:44)
[2023-08-27] MEDS: 0.9 % Sodium Chloride Flush 3 ML SYRINGE IVFLUSH ×3 (00:16→17:30)
[2023-08-27 03:45] VITALS: BP 148/76; PULSE 92; RESP 16; TEMP 37.1; O2SAT 94
[2023-08-27 08:00] VITALS: BP 156/78; PULSE 93; RESP 16; TEMP 36.8; O2SAT 94
[2023-08-27] MEDS: guaiFEN/Codeine SF 200/20/10ML 10 ML LIQUID PO (08:58)
[2023-08-27 09:51] VITALS: BP 139/73; PULSE 94
[2023-08-27] MEDS: Tamsulosin HCL 0.4 MG CAPSULE PO (09:56)
[2023-08-27] MEDS: Benzonatate 100 MG CAPSULE PO ×3 (09:56→20:38)
[2023-08-27] MEDS: Loratadine 10 MG TABLET PO (09:56)
[2023-08-27] MEDS: amLODIPine Besylate 2.5 MG TABLET PO (09:56)
[2023-08-27] MEDS: Fluticasone Propionate Nasal 16 GM SPRAY 1 SPRAY NOSTRIL-B (09:57)
[2023-08-27] MEDS: cefTRIAXone sodium 2 GM in 0.9 % Sodium Chloride 50 ML IV (13:22)
[2023-08-27] MEDS: Acetaminophen 325 MG TABLET 650 MG PO ×2 (13:27→20:40)
[2023-08-27 16:00] VITALS: BP 142/71; PULSE 84; RESP 18; TEMP 36.9; O2SAT 96
[2023-08-27] MEDS: Azithromycin 500 MG TABLET PO (17:29)
[2023-08-27] MEDS: Enoxaparin Sodium 40 MG/0.4 ML SYRINGE SUBCUT (17:29)
[2023-08-27 19:24] VITALS: BP 144/70; PULSE 93; RESP 16; TEMP 36.3; O2SAT 97
[2023-08-27 23:50] VITALS: BP 155/76; PULSE 83; RESP 18; TEMP 36.8; O2SAT 98
[2023-08-28] MEDS: 0.9 % Sodium Chloride Flush 3 ML SYRINGE IVFLUSH ×2 (02:00→07:59)
[2023-08-28] MEDS: guaiFEN/Codeine SF 200/20/10ML 10 ML LIQUID PO (03:25)
[2023-08-28 04:00] VITALS: BP 138/68; PULSE 97; RESP 18; TEMP 36.8; O2SAT 96
--- NOTE | 2023-08-28 06:30 | PC.NURSE ---
Pt's brother called to speak to clay preparation supervisor at 0600. Both patient and brother concerned Urologist has not seen patient yet. This RN and clay preparation supervisor obtained information from pt who affirms he has not seen the Urologist. Will pass along in report.
--- NOTE | 2023-08-28 06:34 | PC.NURSE ---
Reveived a call from patients brother Nirav from [place] stating concern/complaint regarding poor communication from urologist toward patient. Mr Gastelum was transferred to speak to nursing tool supervisor Yvonne.
[2023-08-28 07:43] VITALS: BP 158/84; PULSE 95; RESP 16; TEMP 37; O2SAT 97
[2023-08-28] MEDS: amLODIPine Besylate 2.5 MG TABLET PO (07:58)
[2023-08-28] MEDS: Loratadine 10 MG TABLET PO (07:59)
[2023-08-28] MEDS: oxyCODONE HCl Immed Release 5 MG TABLET PO (07:59)
[2023-08-28] MEDS: Lidocaine 4 % Patch ADH..PATCH 1 PATCH TRANSDERMA (07:59)
[2023-08-28] MEDS: Tamsulosin HCL 0.4 MG CAPSULE PO (07:59)
[2023-08-28] MEDS: Benzonatate 100 MG CAPSULE PO (07:59)
[2023-08-28] MEDS: Fluticasone Propionate Nasal 16 GM SPRAY 1 SPRAY NOSTRIL-B (08:33)
[2023-08-28] MEDS: Docusate Sodium 100 MG CAPSULE PO (08:33)
--- NOTE | 2023-08-28 09:39 | P.PNIM_ITS ---
Subjective Subjective Date of Service: 08/28/23 Interval History: has lower back pain, decreased mobilty due to pain Review of Systems denies any nausea or vomiting or abd pain no fevers Physical Exam 2 Vital Signs: Vital Signs: Last Vital Signs Temp 98.6 F 08/28/23 07:43 Pulse 95 08/28/23 07:43 Resp 16 08/28/23 07:43 BP 158/84 H 08/28/23 07:43 Pulse Ox 97 08/28/23 07:43 O2 Del Method Room Air 08/28/23 07:43 BMI result Body Mass Index 30.3 Appearance: Alert.? Oriented X3.? cvs: rrr, [id number] , no murmur res: air entry fair ,slightly diminshed at bases. abd: no rebound or guarding ,nt , bs present. MS: back pain lumabr area -says paraspinal area and middlle . ext pulses present , no cyanosis . neuro: axo3 , nonfocal. Objective Data Active Medications Acetaminophen (Acetaminophen 325 Mg Tablet) 650 mg PO Q6H PRN PRN Reason: Pain, Mild (Pain Scale 1-3) Last Admin: 08/27/23 20:40 Dose: 650 mg Documented By: REDD Amlodipine Besylate (Amlodipine Besylate 2.5 Mg Tablet) 2.5 mg PO DAILY [facility]; Protocol Last Admin: 08/28/23 07:58 Dose: 2.5 mg Documented By: CINDI Azithromycin (Azithromycin 500 Mg Tablet) 500 mg PO Q24H [facility] Last Admin: 08/27/23 17:29 Dose: 500 mg Documented By: TATY Benzonatate (Benzonatate 100 Mg Capsule) 100 mg PO TID [facility] Last Admin: 08/28/23 07:59 Dose: 100 mg Documented By: CINDI Bisacodyl (Bisacodyl 10 Mg Supp.Rect) 10 mg OR BEDTIME [facility] Last Admin: 08/27/23 20:35 Dose: Not Given Documented By: REDD Non-Admin Reason: loose stools Docusate Sodium (Docusate Sodium 100 Mg Capsule) 100 mg PO BID PRN PRN Reason: Constipation Last Admin: 08/28/23 08:33 Dose: 100 mg Documented By: CINDI Enoxaparin Sodium (Enoxaparin Sodium 40 Mg/0.4 Ml Syringe) 40 mg SUBCUT Q24H [facility] Last Admin: 08/27/23 17:29 Dose: 40 mg Documented By: TATY Fluticasone Propionate (Fluticasone Propionate Nasal [address] [place]) 1 spray NOSTRIL-B DAILY [facility] Last Admin: 08/28/23 08:33 Dose: 1 spray Documented By: CINDI Guaifenesin/Codeine Phosphate (Guaifen/Codeine Sf 200/20/10ml 10 Ml Liquid) 10 ml PO Q6H PRN PRN Reason: Cough Last Admin: 08/28/23 03:25 Dose: 10 ml Documented By: TRAVON Ceftriaxone Sodium 2 gm/ (Sodium Chloride) 50 mls @ 100 mls/hr IV Q24H [facility] Last Infusion: 08/27/23 14:00 Dose: Infused Documented By: BRENDA Lidocaine (Lidocaine 4 % Patch Adh..Patch) 1 patch TRANSDERMA DAILY [facility]; Protocol Last Admin: 08/28/23 07:59 Dose: 1 patch Documented By: CINDI Loratadine (Loratadine 10 Mg Tablet) 10 mg PO DAILY [facility] Last Admin: 08/28/23 07:59 Dose: 10 mg Documented By: CINDI Melatonin (Melatonin 3 Mg Tablet) 6 mg PO BEDTIME PRN PRN Reason: Insomnia Last Admin: 08/25/23 21:55 Dose: 6 mg Documented By: DYLAN Ondansetron HCl (Ondansetron Hcl 4 Mg/2 Ml Vial) 4 mg IVPUSH Q8H PRN PRN Reason: Nausea and Vomiting Oxycodone HCl (Oxycodone Hcl Immed Release 5 Mg Tablet) 5 mg PO Q6H PRN PRN Reason: Pain, Mild (Pain Scale 1-3) Last Admin: 08/28/23 07:59 Dose: 5 mg Documented By: CINDI Polyethylene Glycol (Polyethylene Glycol 3350 17 Gm Powd.Pack) 17 gm PO DAILY PRN PRN Reason: Constipation Sodium Chloride (0.9 % Sodium Chloride Flush 3 Ml Syringe) 3 ml IVFLUSH QSHIFT [facility] Last Admin: 08/28/23 07:59 Dose: 3 ml Documented By: CINDI Tamsulosin HCl (Tamsulosin Hcl 0.4 Mg Capsule) 0.4 mg PO DAILY [facility] Last Admin: 08/28/23 07:59 Dose: 0.4 mg Documented By: CINDI Labs 08/25/23 05:16 08/24/23 12:19 Assessment and Plan (1) Enlarged prostate: Status: Acute (2) Prostate mass: Status: Acute (3) Pneumonia: Status: Acute (4) Urinary tract infection: Status: Acute (5) Back pain: Status: Acute (6) Elevated PSA: Status: Acute Plan 83-year-old male with a PMH significant for?enlarged prostate not on home meds who presents to the ED with?multiple complaints including shortness of breath, headache, cough, constipation, and abdominal distension. Patient is a resident of [place] currently visiting family. Pt will be admitted to the hospital for treatment and further evaluation of sepsis in the setting of UTI and pneumonia. possible pneumonia res panel neg Patient with cough, SOB, fatigue x1.5 weeks CXR with evidence of possible pneumonia Patient meets sepsis criteria: Likely UTI and pneumonia, fever of 103.1, tachycardia; lactic acid WNL at 1.1 continue IVF and ceftriaxone and azithromycin, started 08/24/2023,Loratadine, guaifenesin for cough,Tylenol for fever UTI:UA positive for UTI continue with ceftriaxone, started 08/24/2023 Enlarged prostate Patient with a history of enlarged prostate for the past 6-7 years, sees urologist yearly in [place], not on home meds CT of abdomen and pelvis showed enlarged abnormal appearing prostate, extending up to the base of the bladder Patient reports gross hematuria on and off for at least the past year started on Flomax. Urology consult-added finestride .mild elevated PSA levels, ct abd reivewed by urology suspicion for prostate ca is low. Constipation Patient reports having constipation for the past 2-3 weeks States normally has 2-3 bowel movements daily Colace, MiraLax,add bisacodyl passing bms Elevated Bp:Does not take any po meds continue amlodipine Lumbar back pain :?paraspinal muscle pain he says pain increasing with cough added L spine xary lidocaine ,tylenol,oxycodone ,beclofen Full Code DVT Prophylaxis: Lovenox ongoing hospitlisation need-uti/bph,pneumonia -need iv antibiotics ,blood cultures pending ,also waiting for urology follow up. Quality Stroke Does the patient have a stroke diagnosis?: No VTE Prior VTE?: No VTE Risk Level:: Medical - moderate - high VTE Device Contraindication: Treatment Not Indicated VTE Drug Contraindication: N/A - Med Ordered
[2023-08-28] MEDS: Baclofen 10 MG TABLET PO (10:46)
[2023-08-28] MEDS: Acetaminophen 325 MG TABLET 650 MG PO (12:37)
[2023-08-28] MEDS: cefTRIAXone sodium 2 GM in 0.9 % Sodium Chloride 50 ML IV (12:38)
--- NOTE | 2023-08-28 13:28 | P.PNUR_ITS ---
Subjective Subjective Date of Service: 08/28/23 Interval history: Discussed with patient and daughter f/u in 6-8 weeks will repeat PSA and check BABITA start finasteride manage constipation Has family history of prostate cancer Had TURP around 2014 in [place] If PSA remains high and BABITA suspicious would consider mpMRI Physical Exam 2 Vital Signs: Vital Signs: Last Vital Signs Temp 98.6 F 08/28/23 07:43 Pulse 95 08/28/23 07:43 Resp 16 08/28/23 07:43 BP 158/84 H 08/28/23 07:43 Pulse Ox 97 08/28/23 07:43 O2 Del Method Room Air 08/28/23 07:43 BMI result Body Mass Index 30.3 Const: General: cooperative, healthy appearing, comfortable and no acute distress Orientation/consciousness: patient oriented x3 HEENT: Face and sinus: Yes normal facial exam Mouth: moist mucous membranes Neck: Neck: Yes normal visual inspection, Yes full ROM and Yes trachea midline Chest: Chest palpation & inspection: normal inspection of the chest Resp: Effort & Inspection: normal respiratory effort, able to speak in complete sentences and no respiratory distress GI: Inspection: Yes normal to inspection Back/Spine/Pelvis: Cervical Spine: normal cervical lordosis Thoracic/Lumbar Spine: thoracic and lumbar spine normal to inspection Skin: General skin exam: no rashes or lesions noted Neuro: General: patient oriented x3, tone normal and moves all extremities Extrem: General: Yes normal to inspection and Yes capillary refill normal Urology Results Labs 08/25/23 05:16 08/24/23 12:19 Progress Note: A&P Assessment and plan (1) Elevated PSA: Status: Acute (2) Urinary tract infection: Status: Acute Plan outpatient f/u Time Spent With Patient Time: Total time managing care of this patient today ____ minutes. Progress Note: Quality Stroke Does the patient have a stroke diagnosis?: No
--- NOTE | 2023-08-28 14:04 | P.DS_ITS ---
DS: Providers Provider Date of Service: 08/28/23 Date of admission: 08/24/23 17:42 Date of discharge: 08/28/23 Primary care physician: None Physician Consults: 08/24/23 17:32 Consult to Urology Routine Consulting Provider: Sebastián Renner Reason for consultation: Enlarged, abnormal prostate extending to bladder, UTI, hematuria Attending physician on discharge: Kirk Dennis Discharging clinician: Kirk Dennis DS: Diagnosis Discharge Diagnosis (1) Elevated PSA: Status: Acute (2) Urinary tract infection: Status: Acute DS: Summary Hospital Course Hospital Course: 83-year-old male with a PMH significant for?enlarged prostate not on home meds who presents to the ED with?multiple complaints including shortness of breath, headache, cough, constipation, and abdominal distension. Patient is a resident of [place] currently visiting family. Family recently went on a cruise to celebrate patient's birthday on August 06. Patient states he began to feel ill while on the cruise 1.5 weeks ago. Patient experienced mostly nonproductive cough, shortness of breath, headache, difficulty breathing, and fever and chills. Patient reports also has been experiencing constipation, abdominal distension, and significant flatulence for the past 2-3 weeks. Patient reports he normally has 2-3 bowel movements every day and does not have a history of constipation. Patient presented to the ED today after experiencing a particularly rough night last night where he was constantly coughing and could not sleep and his abdominal distention was worsening. Of note, patient's only significant PMH is an enlarged prostate for which she is followed by Urology in [facility]. Sees his urologist yearly and has an appointment with him later in the month. Patient states he is currently not on any home meds for BPH. Does report occasional hematuria for at least the last year. Denies any unintended weight loss. No chest pain/pressure, palpitations. Denies nausea, vomiting, abdominal pain. In the ED patient was febrile at 103.1, tachycardic up to 107, and hypertensive up to 172/93, satting at 97% on RA. Labs were significant for H&H 9.5/30.2, otherwise largely unremarkable. Electrolytes WNL. Renal function in all hepatic lesion WNL. Lactic acid 1.1. Troponin 7.5. Patient tested negative for influenza type a and B, RSV, COVID. UA positive for UTI. CXR showed streaky opacities in the left lung base may represent bronchiectasis, atelectasis, and/or pneumonia. CT of abdomen pelvis found enlarged abnormal appearing prostate, extending up to the base of the bladder. EKG demonstrated sinus tachycardia with PVCs but no evidence of ST elevations or depressions. Pt was treated with acetaminophen, ceftriaxone, and IVF. Pt will be admitted to the hospital for treatment and further evaluation of sepsis in the setting of UTI and pneumonia. Hospital course: patient came with ?enlarged prostate not on home meds who presents to the ED with?multiple complaints including shortness of breath, headache, cough, constipation, and constipation. Patient is a resident of [place] currently visiting family. Pt will be admitted to the hospital for treatment and further evaluation of sepsis in the setting of UTI and pneumonia-patient was started on IV antibiotics, blood cultures sent, constipation lopez started on laxatives, BPH: Added Flomax and finasteride.Subsequently patient improved with with IV antibiotic , blood culture negative, passing bowels constipation also improved, denies any urinary complaints . Has paraspinal muscle area back pain: Which is improved with the pain medication, lumbar spine x-ray was done-mild spondylitic endplate changes are present. Vertebral body heights and disc spaces are relatively well preserved. No compression fractures or bony destructive lesions. CT scan shows enlarged prostate with question of Note is made however of very minor sclerotic foci in the right and left iliac bones. Discussed with Urology in detail-futher workup outpatient .consider bone scan outpatient . persistent elevated bp: started on amlodipine low dose , advised lifestyle modification including weight loss, low-salt diet. Patient is overweight-strongly advised to cut down calories and lose weight. Plan: please complete course of Ceftin, azithromycin for 7 days as instructed.Please repeat chest imaging in 3-4 weeks to see resolution of pneumonia. Started on amlodipine 2.5 mg for blood pressure. Also started on Flomax and finasteride for BPH. CT scan shows enlarged prostate with question of Note is made however of very minor sclerotic foci in the right and left iliac bones. Discussed with Urology in detail-futher workup outpatient .consider bone scan outpatient . Patient was strongly advised and encouraged to lose weight. Follow-up with PCP and outpatient urology for further management. Assessment plan discussed with patient and his daughter in detail length they both understand and agreement with the above [id number] out patiently( need PCP appointment), also follow-up with Urology outpatient. Time Attestation Discharge coordination time: Greater than 30 minutes Quality: Safe Use of Opioids Does Pt have an Active Cancer Diagnosis on the Problem List?: No Quality: Stroke Does the patient have a stroke diagnosis?: No Physical Exam Vital Signs: Vital Signs: Last Vital Signs Temp 98.6 F 08/28/23 07:43 Pulse 95 08/28/23 07:43 Resp 16 08/28/23 07:43 BP 158/84 H 08/28/23 07:43 Pulse Ox 97 08/28/23 07:43 O2 Del Method Room Air 08/28/23 07:43 BMI result Body Mass Index 30.3 Appearance: Alert.? Oriented X3.? cvs: rrr, [id number] , no murmur res: air entry fair ,slightly diminshed at bases. abd: no rebound or guarding , nt , bs present. ext pulses present , no cyanosis . neuro: axo3 , nonfocal. DS: Data Data Completed and Pending Labs on day of discharge: Preliminary micro results at discharge 08/24/23 12:19 Blood Culture - Preliminary Blood - Venous No growth after 48 hours. 08/24/23 11:51 Blood Culture - Preliminary Blood - Venous No growth after 48 hours. Imaging Chest x-ray: Radiologist's impression: ITS Impressions Chest X-Ray 08/24/23 12:32 IMPRESSION: Streaky opacities at the left lung base may represent bronchiectasis, atelectasis and/or pneumonia. No pleural effusion. This study was presented today August 24, 2023 at 1:05 PM for interpretation. Stat results provided at this time as requested by referring provider. Abdomen/Pelvis CT 08/24/23 12:59 IMPRESSION: Enlarged abnormal appearing prostate, extending up to the base of the bladder. Further workup advised. Fleischner guidelines were followed. Lumbar Spine X-Ray 08/28/23 08:17 IMPRESSION: Mild spondylitic endplate changes. No evidence of an acute injury. Discharge Plan Discharge Anticipated Discharge Date/Time: 08/27/23 10:56 Patient Disposition: Home, Self-Care Discharge Diagnosis: uti ,bph,constipation , abnormal abd ct Referrals: Renner,Sebastián M, MD [Physician] - 1 Week (follow up outpatient) Physician,None [Primary Care Provider] - 1 Week Discharge Medications: New polyethylene glycol 3350 17 gram Powder In Packet 17 g PO DAILY PRN (Reason: Constipation) Qty: 30 0RF amlodipine 2.5 mg Tablet 2.5 mg PO DAILY Qty: 30 0RF Protocol: Hold for SBP< HOLD for SBP < : 90 tamsulosin 0.4 mg Capsule 0.4 mg PO DAILY Qty: 30 0RF docusate sodium 100 mg Capsule 100 mg PO BID PRN (Reason: Constipation) Qty: 30 0RF codeine-guaifenesin 10-100 mg/5 mL Liquid 10 ml PO Q6H PRN (Reason: Cough) Qty: 100 0RF fluticasone propionate 50 mcg/actuation [place],Suspension 1 spray intranasal DAILY Qty: 1 0RF loratadine 10 mg Tablet 10 mg PO DAILY Qty: 30 0RF cefuroxime axetil 500 mg tablet 500 mg PO BID Qty: 14 0RF azithromycin 500 mg tablet 500 mg PO DAILY 6 Days Qty: 6 0RF finasteride 5 mg tablet 5 mg PO DAILY Qty: 30 0RF baclofen 10 mg tablet 10 mg PO DAILY Qty: 20 0RF lidocaine [Lidocaine Pain Relief] 4 % Adhesive Patch,Medicated 1 patch transdermal DAILY Qty: 5 0RF Protocol: Apply to: Apply to: Back pain Discharge Orders: Discharge Order (Routine); Ordered 08/28/23 Ordered By: Kirk Dennis Diet: Advance to usual diet Activity on Discharge: As tolerated Stand Alone Forms: Patient Portal Discharge page Care Plan Goals: patient came with ?enlarged prostate not on home meds who presents to the ED with?multiple complaints including shortness of breath, headache, cough, constipation, and constipation. Patient is a resident of [place] currently visiting family. Pt will be admitted to the hospital for treatment and further evaluation of sepsis in the setting of UTI and pneumonia-patient was started on IV antibiotics, blood cultures sent, constipation lopez started on laxatives, BPH: Added Flomax and finasteride.Subsequently patient improved with with IV antibiotic , blood culture negative, passing bowels constipation also improved, denies any urinary complaints . Has paraspinal muscle area back pain: Which is improved with the pain medication, lumbar spine x-ray was done-mild spondylitic endplate changes are present. Vertebral body heights and disc spaces are relatively well preserved. No compression fractures or bony destructive lesions. CT scan shows enlarged prostate with question of Note is made however of very minor sclerotic foci in the right and left iliac bones. Discussed with Urology in detail-futher workup outpatient .consider bone scan outpatient . persistent elevated bp: started on amlodipine low dose , advised lifestyle modification including weight loss, low-salt diet. Patient is overweight-strongly advised to cut down calories and lose weight. Assessment plan discussed with patient and his daughter in detail length they both understand and agreement with the above [id number] out patiently( need PCP appointment), also follow-up with Urology outpatient. Health Concerns: as above. Plan of Treatment: please complete course of Ceftin, azithromycin for 7 days as instructed. Please repeat chest imaging in 3-4 weeks to see resolution of pneumonia. Started on amlodipine 2.5 mg for blood pressure. Also started on Flomax and finasteride for BPH. CT scan shows enlarged prostate with question of Note is made however of very mi nor sclerotic foci in the right and left iliac bones. Discussed with Urology in detail-futher workup outpatient .consider bone scan outpatient . Patient was strongly advised and encouraged to lose weight. Follow-up with PCP and outpatient urology for further management. Assessment: as above.
--- NOTE | 2023-08-28 14:29 | MHC.CM.PN ---
PT TO DC TODAY BACK TO [facility] HOME PT PLANS TO RETURN TO [place] NEXT WEEK FAMILY WILL TRANSPORT
== END 2023-08-28 15:29 | disposition home or self-care (01) | DRG 689 ==
LOC: HO.ED 15:03 → HO.EDOVER 17:52 → HO.S3 19:25
PROVIDERS: Physician Assistant; Admitting Provider Student in an Organized Health Care Education/Training Program; Emergency Provider Emergency Medicine Emergency Medical Services; Visit Provider Internal Medicine
DX: N39.0 Urinary tract infection, site not specified (principal); J18.9 Pneumonia, unspecified organism; K59.00 Constipation, unspecified; N40.0 Benign prostatic hyperplasia without lower urinary tract symptoms; Z20.822 Contact with and (suspected) exposure to COVID-19; Z79.899 Other long term (current) drug therapy
CPT/HCPCS: 0241U; 36415; 71046; 72110; 74177; 80048; 80076; 81001; 81003; 83036; 83605; 83735; 83880; 84153; 84484; 85025; 85027; 87040; 87086; 87633; 90686; 93005; 99285; J0131; J0696; J1650; Q9967

== ENCOUNTER → 2023-08-24 17:42 | Outpatient (BNV) | payer SELFPAY | PROVIDERS: Admitting Provider Student in an Organized Health Care Education/Training Program; Emergency Provider Emergency Medicine Emergency Medical Services; Visit Provider Urology | DX: R97.20 Elevated prostate specific antigen [PSA] (principal); N39.0 Urinary tract infection, site not specified | CPT/HCPCS: 99232 ==

== ENCOUNTER → 2023-08-24 17:42 | Outpatient (BNV) | payer SELFPAY | PROVIDERS: Admitting Provider Student in an Organized Health Care Education/Training Program; Emergency Provider Emergency Medicine Emergency Medical Services; Visit Provider Student in an Organized Health Care Education/Training Program | DX: N40.0 Benign prostatic hyperplasia without lower urinary tract symptoms (principal); J18.9 Pneumonia, unspecified organism; N39.0 Urinary tract infection, site not specified; R97.20 Elevated prostate specific antigen [PSA] | CPT/HCPCS: 99223; 99231; 99232; 99239 ==